=== PATIENT | female | born 1990 | race Caucasian/White ===

== ENCOUNTER → 2020-07-03 18:20 | Outpatient (ROUT) | payer OTHER, SELFPAY | PROVIDERS: Visit Provider Nurse Practitioner Obstetrics & Gynecology | DX: Z34.90 Encounter for supervision of normal pregnancy, unspecified, unspecified trimester (principal); Z36.85 Encounter for antenatal screening for Streptococcus B; Z3A.36 36 weeks gestation of pregnancy | CPT/HCPCS: 87081 ==

== ENCOUNTER → 2020-07-20 12:02 | Outpatient (CLI) | payer OTHER, SELFPAY ==
--- NOTE | 2020-07-20 12:04 | DI.US.S_ITS ---
PROCEDURE: US OB LIMITED INDICATIONS: SIZE LESS THAN DATES OUTSIDE/PRIOR DATING DATA: Last menstrual period (LMP): 10/22/2019. LMP-based estimated date of delivery (RONDA): 07/28/2020 . First dating scan (date and location): 07/20/2020 . Estimated date of delivery (RONDA) from first dating scan: 08/16/2020 . TECHNIQUE: Real-time scanning was performed of the fetus, with image documentation and biometric measurements. Endovaginal scanning: No COMPARISON: None. FINDINGS: General: A single living intrauterine gestation is present. Presentation: Vertex. Placenta: Placental position is anterior. Previa cannot be excluded as the lower uterine segment and inferior margin of the placenta is not well seen. Amniotic fluid index: 6.4 cm, normal range is 5-24 cm. heart rate: 136 beats per minute. Maternal cervical canal: Not well seen. biometrics: Biparietal diameter: 35 weeks 2 days Head circumference: 36 weeks 6 days Abdominal circumference: 34 weeks 3 days Femur length: 37 weeks 6 days Estimated gestational age from initial scan or LMP: 38 weeks 6 days Composite gestational age from present scan: 36 weeks 1 day Estimated weight and percentile: 2744 g, 6 percentile Measurement variability for biometric dating: +/- 7 days from 14 weeks to 15 weeks 6 days gestation, +/- 10 days from 16 weeks to 21 weeks 6 days gestation, +/- 2 weeks from 22 weeks to 27 weeks 6 days gestation, +/- 3 weeks for 28 weeks gestation or later. weight reference: 4500 g or EFW >90/95% is considered macrosomia or large for gestational age. EFW <10% is small for gestational age. EFW 5% or less is considered intra-uterine growth restriction. Other: Very limited anatomic survey secondary to gestational age. Cord Dopplers are normal ranging between 2 point 4 and 2.7. Possible right persistent umbilical vein. IMPRESSION: 1. Single living IUP with composite gestational age of 36 weeks 1 day corresponding to ultrasound RONDA of 08/16/2020. 2. Estimated weight is at the 6 percentile when compared to the LMP RONDA of 07/28/2020 which requires close clinical correlation and follow-up as necessary to exclude intrauterine growth restriction. 3. Possible persistent right umbilical vein which is not well imaged on the current exam. Recommend short-term follow-up ultrasound for further assessment. Jess Moody phoned with results by the luncheonette operator at 12:46 p.m. 07/20/2020. Dictated by: Lee THIBODEAUX Interpreted: Edna Calvillo MD on 07/20/2020 at 17:04 Transcribed by: JONATHAN on 07/20/2020 at 17:15 Approved by: Edna Calvillo M.D. on 07/20/2020 at 17:37
== END ==
PROVIDERS: Referring Provider Nurse Practitioner Obstetrics & Gynecology; Visit Provider Nurse Practitioner Obstetrics & Gynecology
DX: O26.843 Uterine size-date discrepancy, third trimester (principal); Z3A.36 36 weeks gestation of pregnancy
CPT/HCPCS: 76815

== ENCOUNTER 2020-07-21 19:45 | Inpatient (IN) | payer OTHER, SELFPAY ==
--- NOTE | 2020-07-21 20:34 | PM.OBHP.1 ---
OB HPI Date/Time Date of admission: 07/21/20 Date Patient Seen: 07/21/20 Time Patient Seen: 08:00 History of Present Condition Chief complaint: : 1 Para: 0 Estimated Date of Delivery: 07/28/20 Estimated Gestational Age (weeks): 39.0 Narrative: Shirley Rivera is a 30 year old female @ 39wks by LMP and early US who presents for cervical ripening for IOL for IUGR w/ possible PRUV. Shirley transferred in from [facility] at 28wks. Shirley is constitutionally small w/ normal US and EFW 10th% @ 22wks. FH screening was normal until 38 weeks, at which time, a growth US showed EFW in the 6th% with new finding of possible PRUV. was consulted and IOL was recommended. Shirley and her Darrel agreed and informed consent was obtained. Otherwise uncomplicated care. Indications Indication for induction OB: medical complication (IUGR) History of Present care: good care, initiated at week # (10) and pounds weight gain (15) Dating criteria: LMP confirmed by 1st trimester US Ultrasounds: normal mid trimester US Obstetrical complications: growth restriction Medical complications: none Preadmission Labs Blood type: A (+) positive -: Antibody screen: negative, GBS status: negative, HBsAG: negative, HIV: negative and RPR/VDLR: negative -: Chlamydia screen: not detected and Gonorrhea screen: not detected -: Rubella: immune and Varicella: immune HCT: 40.9 HCAB: reactive Sequential screen: negative 1 hr GTT: 77 Narrative: SARS-CoV-2 negative upon admission Evaluation Evaluation Baseline heart rate: 315 Variability: Moderate (11-25) monitor accelerations: Present Monitor Decelerations: Absent Contraction Frequency (minutes): 3 Uterine Contraction Intensity: Mild Status: Category l Cervical dilation (cm): 1 Cervical effacement (%): 75 station: -2 PFSH Medical History (Updated 07/21/20 @ 20:46 by Jess Cassidy CNM) Anxiety Surgical History (Updated 07/21/20 @ 20:46 by Jess Cassidy CNM) History of placement of ear tubes Family History (Updated 07/21/20 @ 20:47 by Jess Cassidy CNM) Mother Hypertension Hypothyroid Father Depression Social History (Updated 07/21/20 @ 20:47 by Jess Cassidy CNM) marital status: household members: spouse lives independently: Yes housing: house education level: college occupational status: employed Smoking Status: Never smoker Meds Home Medications and Allergies Allergies Allergy/AdvReac Type Severity Reaction Status Date / Time No Known Drug Allergies Allergy Verified 07/21/20 20:42 Review of Systems Review of Systems ROS: Yes All systems reviewed with the patient and are negative except as otherwise documented Exam Vital Signs (past 8 hours): 129/86, HR 65bpm, T 97.8F Temporal Resp Effort & Inspection: normal respiratory effort Auscultation: clear to auscultation bilaterally Cardio Rate: regular rate Rhythm: regular rhythm Heart Sounds: S1 normal and S2 normal Presentation: vertex Estimated Weight (lbs): 6 Assessment and Plan Assessment and Plan Assessment and Plan narrative: A: Term [place] IOL for IUGR Cervical ripening indicated No indication for GBS prophylaxis Cat I FHR P: Admit, routine orders. Steward balloon placed w/ sterile speculum. Patient tolerated this well. Encouraged rest overnight and will reassess in am.
[2020-07-21 22:31] VITALS: BP 132/77
[2020-07-21 22:50] LABS: COVID19 - ADMIT (NP swab/PCR) Negative (Negative)
--- NOTE | 2020-07-22 07:11 | P.PNOB_ITS ---
Date/Time Date Patient Seen: 07/22/20 Time Patient Seen: 07:00 Pain Control Pain control: tolerating well Comments: Patient felt regular, uncomfortable contractions until about 0300. Was able to sleep well this morning. Has not been able to remove Steward balloon w/ gentle pulling. Has noticed some bloody show. No LOF. remains present and supportive. They'd like to go for a walk. VS: 132/77, HR 68bpm, T 36.6CTemporal Pelvic Exam Dilation (cm): 5 Effacement (%): 80 station: -2 Amniotic membrane status: Intact Comments: Steward balloon removed from vagina prior to exam. Contractions Contractions on admission: none Monitor mode: External Pitocin rate (mU/min): 0 Contraction frequency (min): 4 Contraction duration (min): 1 Contraction pattern: Irregular Contraction phase: Resting Contraction intensity: Mild Status status: Category l Heart Rate Baseline: 150 Monitor Accelerations: Present Monitor Decelerations: Absent Monitor Variability: Moderate Assessment and Plan Assessment: induction ongoing Plan: begin patient augmentation Comments: Pitocin initiation will be delayed d/t knock up assembler. Notified RN patient is allowed to go for a 30 minute walk. As soon as staffing allows, IV start w/ labs and pitocin titration to adequate contraction pattern. Encouraged balanced rest and activity for Shirley until uncomfortable contractions begin. Will reassess CE after 2 hours of strong contractions.
[2020-07-22] MEDS: OXYTOCIN PREMIX 30 UNIT/500 ML PLAST..BAG IV (12:13)
[2020-07-22 13:37] LABS: Add Manual Diff / Slide Review NO; Basophils Absolute Auto 100 /uL (0-100); Basophils Percent Auto 0.4 % (0-2); Eosinophils Absolute Auto 100 /uL (0-450); Eosinophils Percent Auto 0.9 % (2-4); Hematocrit 35.7 % (36-46); Hemoglobin 12.4 g/dL (12.0-16.0); Lymphocytes Absolute Auto 1900 /uL (1100-4500); Lymphocytes Percent Auto 13.1 % (25-40); Mean Corpuscular HGB Conc 34.7 % (30-36); Mean Corpuscular Hemoglobin 30.2 PG (26-34); Mean Corpuscular Volume 87.1 fL (80-100); Monocytes Absolute Auto 900 /uL (0-900); Monocytes Percent Auto 6.4 % (3-14); Neutrophils Absolute Auto 11200 /uL (1500-7000); Neutrophils Percent Auto 79.2 % (50-75); Platelet Count 232 X10^3/uL (150-400); Red Cell Distribution Width 13.2 % (11.6-14.8); White Blood Cell Count 14.1 X10^3/uL (4.5-11.0)
--- NOTE | 2020-07-22 14:39 | PM.OBPNLAB ---
Date/Time Date Patient Seen: 07/22/20 Time Patient Seen: 14:39 Pain Control Pain control: tolerating well Comments: VS: 111/65, HR 68bp,, T 36.6C Temporal Pelvic Exam Dilation (cm): 5 Effacement (%): 80 station: -2 Amniotic membrane status: Intact Comments: CE deferred Contractions Contractions on admission: irregular Monitor mode: External Pitocin rate (mU/min): 5 Contraction frequency (min): 2 Contraction duration (min): 1 Contraction pattern: Regular Contraction intensity: Mild Status status: Category l Heart Rate Baseline: 140 Monitor Accelerations: Present Monitor Decelerations: Absent Monitor Variability: Moderate Comments: Few lates between [id number], resolved without recurrence Assessment and Plan Assessment: induction ongoing Plan: continuous present management Comments: Continue pitocin titratio to adequate contraction pattern. reassess in 4 hours or sooner, PRN.
--- NOTE | 2020-07-22 18:20 | PM.OBPNLAB ---
Date/Time Date Patient Seen: 07/22/20 Time Patient Seen: 18:05 Pain Control Pain control: tolerating well Comments: Patient sitting up at the bedside, just finished dinner. Feeling stronger contractions, but still ot as intense as w/ the Steward balloon last night. Is agreeable to AROM. VS: BP 122/77, HR 80bpm, T 36.6C Temporal Pelvic Exam Dilation (cm): 5 Effacement (%): 80 station: -2 Amniotic membrane status: Intact Comments: AROM, moderate clear fuid. Contractions Contractions on admission: irregular Monitor mode: External Pitocin rate (mU/min): 13 Contraction frequency (min): 2 Contraction duration (min): 1 Contraction pattern: Regular Contraction phase: Resting Contraction intensity: Mild Status status: Category l Heart Rate Baseline: 140 Monitor Accelerations: Present Monitor Decelerations: Absent Monitor Variability: Moderate Assessment and Plan Assessment: induction ongoing Plan: continuous present management Comments: Anticipate onset of labor at this time. Continue pitocin titration per protocol. Labor support, PRN. Reassess in 2-4 hours.
[2020-07-22] MEDS: LACTATED RINGERS 1,000 ML 100 ML IV (20:40)
--- NOTE | 2020-07-22 21:40 | PM.OBPNLAB ---
Date/Time Date Patient Seen: 07/22/20 Time Patient Seen: 21:40 Pain Control Pain control: epidural Comments: Patient labored well in various positions. Pitocin was steadily decreased w/ q 2 minute contraction pattern and is off now. Tried the tub and NO2 for about 45 minutes each, then requested and received an epidural. Now resting comfortably. VS: BP 113/53, HR 63bpm, T 36.9C Temporal Pelvic Exam Dilation (cm): 7 Effacement (%): 90 station: 0 Amniotic membrane status: Leaking Comments: clear fluid w/ some bloody show Contractions Monitor mode: External Pitocin rate (mU/min): 0 Contraction frequency (min): 2 Contraction pattern: Regular Contraction phase: Resting Contraction intensity: Mild Status status: Category l Heart Rate Baseline: 130 Monitor Accelerations: Present Monitor Decelerations: Absent Monitor Variability: Moderate Assessment and Plan Assessment: active labor Plan: continuous present management Comments: Continue expectant management. May restart pitocin if contraction space. Recheck in 4 hours or sooner, PRN.
[2020-07-23] MEDS: LACTATED RINGERS 1,000 ML 100 ML IV (00:49)
--- NOTE | 2020-07-23 01:57 | PM.OBPRVD ---
Events: Labor Induction Labor & Delivery Delivery date: 07/23/20 Intrapartal Events: None Cervical ripening method: per Steward bulb protocol Induction method: AROM Delivery augmentation: pitocin Delivery monitor: external FHT and external uterine Route of delivery: Indication for instrumentation: nonreassuring FHR tracing L&D Laceration Description: None Anesthesia Type: Epidural Narrative: Shirley rested and then began to feel occasional rectal pressure. Was checked and found to be C/C/+2. Shirley pushed well with coaching and encouragement. NSVB of vigorous baby boy in ANJANA position over an intact perineum. There was no nuchal cord and shoulders delivered easily without additional maneuvers. [place] was placed on maternal abdomen for drying and skin to skin. After cessation of pulsation, the cord was double clamped by CNM and cut by FOB. Cord blood hold sample was collected. Gentle cord traction and single maternal push led to spontaneous, Schultze delivery of an apparently intact placenta, membranes and 3VC. Fundus immediately firm and bleeding minimal. QBL 150mL. Both mother and baby stable and skin to skin as I left the room. [place] Baby 1: Infant gender: Male Presentation: vertex Position: Right Occiput Anterior Placenta delivery description: Spontaneous Cord Vessel Description: 3 Vessels score (1 min): 9 score (5 min): 9 Narrative: 2714 grams/ 5lbs 15.7oz Plan for aftercare: Routine care
[2020-07-23] MEDS: KETOROLAC 30 MG/ML VIAL IV (06:15)
[2020-07-23] MEDS: LANOLIN OINT 7 GM 1 APPLIC TOP (06:17)
--- NOTE | 2020-07-23 14:40 | P.PNOB_ITS ---
Subjective - OB Subjective Patient comments: no complaints, pain well controlled and tolerating diet baby status: doing well and nursing well feeding status: exclusively breast feeding Narrative: Ambulating in room, dressed in her own clothes. Voiding ambulating and independently, though [place] has been sleepy and difficult to feed. Tolerating general diet. Pain well controlled w/ PO medications. Lochia is light, no clots. Has a pump to encourage and express colostrum given short sessions, but hasn't had time to start using it yet. remains present and supportive. Date Patient Seen: 07/23/20 Time Patient Seen: 14:41 Exam Vital Signs (past 8 hours): BP 101/59, HR 77bpm, RR 17/min, T 98.1F Temporal Other: Fundus firm @ U, lochia light, no clots. mild perineal edema. Objective Labs Result Diagrams: 07/22/20 12:30 Assessment & Plan Assessment and Plan (1) Encounter for full-term uncomplicated delivery: Problem details: Continue routine PP orders w/ support overnight. Anticipate d/c in am. Status: Acute Time Spent With Patient Time: Total time spent is greater than 50% in coordination of care (as august roberto) at patient's floor/unit and/or counseling patient: Time with patient: 15-24 minutes
[2020-07-24] MEDS: IBUPROFEN 600 MG TABLET PO (01:07)
--- NOTE | 2020-07-24 06:54 | P.DS_ITS ---
Discharge Providers Provider Date of admission: 07/21/20 19:45 Discharge Date: 07/24/20 Consults: 07/24/20 01:54 Consult to [employer] C[employer] Hand Routine Comment: Discharge provider: Jess Cassidy CNM Summary Discharge Diagnosis (1) Encounter for full-term uncomplicated delivery: Status: Acute Problem Details: Voiding, ambulating and independently. Eager for d/c to home this morning. Feeling more confident with sleepy [place] today. Pain well controlled w/ PO medications. Tolerating general diet and passing gas. Lochia is light, no clots. remains supportive and will continue support at home. Time Spent with Patient Time attestation: Total time spent providing and/or coordinating discharge services: Objective Labs Result Diagrams: 07/22/20 12:30 Exam Vital Signs (past 8 hours): BP 118/61, HR 68bpm, RR 16/min, T 98.1F Temporal Other: lochia light, fundus firm @ u-1, minimal perineal edema Psych Appearance: well kempt Speech and Movement: speech and movement normal Affect: normal affect Discharge Plan Discharge Plan Patient Disposition: Home Discharge orders & Medications Prescriptions: New ibuprofen 600 mg Tablet 600 mg PO Q6HR PRN (Reason: Pain, Mild (1-3)) 14 Days Qty: 60 RF: 0 No Action No Known Home Medications RF: 0 Medication counseling provided by Pharmacist: No Follow up/Referrals: Jess Cassidy CNM [[employer]] - (Follow-up by Telehealth 08/06/20 @ 4:30pm Follow-up in office 09/02/20 @ 11:00am) Diet/Activity/Treatments Diet: Regular Activity: pelvic rest x 6 weeks Skin/Wound/Dressing Care Report to your healthcare provider any signs of infection, such as:: chills, fever, increased pain, unusual drainage and unusual redness Visit Report/Discharge Packet Instructions: DI for Depression
[2020-07-24 09:15] VITALS: BP 116/70; PULSE 72; RESP 16; TEMP 36.8
== END 2020-07-24 09:40 | disposition home or self-care (01) | DRG 807 ==
PROVIDERS: Admitting Provider Nurse Practitioner Obstetrics & Gynecology; Referring Provider Nurse Practitioner Obstetrics & Gynecology; Visit Provider Nurse Practitioner Obstetrics & Gynecology
DX: O36.5930 Maternal care for other known or suspected poor fetal growth, third trimester, not applicable or unspecified (principal); Z37.0 Single live birth; O77.8 Labor and delivery complicated by other evidence of fetal stress; Z3A.39 39 weeks gestation of pregnancy; Z20.822 Contact with and (suspected) exposure to COVID-19
CPT/HCPCS: 01967; 36415; 59050; 85025; 86850; 86900; 86901; 87635; C9803; G0379; J1885; J2590